=== PATIENT | male | born 1940 | race Caucasian/White ===

== ENCOUNTER 2016-11-13 06:48 | Inpatient (IN) | payer MEDICARE ==
[2016-11-13 06:48] LABS: BASOPHIL 0.3 % (0-2); EOSINOPHIL 1.1 % (0-7); HGB 13.1 g/dl (13.2-18.0); LYMPHOCYTE 14.5 % (15-48); MCH 30.3 pg (25.0-31.0); MCHC 32.8 g/dL (32.0-36.0); MCV 92.6 fL (78.0-100.0); MONOCYTE 7.9 % (0-12); MPV 9.4 fL (6.0-9.5); NEUTROPHIL 76.2 % (41-80); PLT 283 K/uL (150-400); RBC 4.32 M/uL (4.70-6.00); RDW 14.6 % (11.5-14.0); WBC 9.9 K/uL (4.0-10.5)
[2016-11-13 07:06] LABS: ALBUMIN 4.3 g/dL (3.4-4.8); ALKALINE PHOSHATASE 149 U/L (59-141); ALT 252 U/L (2-40); AST 290 U/L (0-37); BILIRUBIN - TOTAL 0.9 mg/dL (0.1-1.0); BUN 14 mg/dL (6-25); CHLORIDE 101 mmol/L (98-107); CREATININE 0.7 mg/dL (0.7-1.2); GLOBULIN (CALCULATION) 2.7 g/dL (2.2-4.2); GLUCOSE 153 mg/dL (83-110); POTASSIUM 3.3 mmol/L (3.5-5.1)
[2016-11-13 07:12] LABS: LIPASE >600 U/L (13-60)
[2016-11-13 07:28] LABS: BILIRUBIN NEGATIVE (NEGATIVE); BLOOD NEGATIVE Ery/uL (NEGATIVE); CLARITY CLEAR (CLEAR); COLOR YELLOW (YELLOW); GLUCOSE (U) NORMAL (NORMAL); KETONE (U) NEGATIVE (NEGATIVE); LEUKOCYTES NEGATIVE Leu/uL (NEGATIVE); NITRITE NEGATIVE (NEGATIVE); PROTEIN NEGATIVE (NEGATIVE); UROBILINOGEN 0.2 mg/dL (0.2-1.0)
[2016-11-14 04:05] LABS: BASOPHIL 0.1 % (0-2); EOSINOPHIL 0 % (0-7); HCT 35.9 % (42.0-52.0); HGB 11.9 g/dl (13.2-18.0); LYMPHOCYTE 4.7 % (15-48); MCH 30.4 pg (25.0-31.0); MCHC 33.1 g/dL (32.0-36.0); MCV 91.8 fL (78.0-100.0); MONOCYTE 7.5 % (0-12); MPV 9.4 fL (6.0-9.5); NEUTROPHIL 87.7 % (41-80); PLT 233 K/uL (150-400); RBC 3.91 M/uL (4.70-6.00); RDW 14.8 % (11.5-14.0); WBC 14.7 K/uL (4.0-10.5)
[2016-11-14 04:21] LABS: ALBUMIN 3.6 g/dL (3.4-4.8); BILIRUBIN - TOTAL 0.6 mg/dL (0.1-1.0); CREATININE 0.6 mg/dL (0.7-1.2); GLOBULIN (CALCULATION) 2.5 g/dL (2.2-4.2); MAGNESIUM 1.94 mg/dL (1.40-2.10); POTASSIUM 3.7 mmol/L (3.5-5.1); TOTAL PROTEIN 6.1 g/dL (6.4-8.3)
[2016-11-15 04:30] LABS: BASOPHIL 0.1 % (0-2); EOSINOPHIL 1.5 % (0-7); HCT 35.5 % (42.0-52.0); HGB 11.4 g/dl (13.2-18.0); MCH 29.8 pg (25.0-31.0); MCHC 32.1 g/dL (32.0-36.0); MCV 92.9 fL (78.0-100.0); MONOCYTE 9.6 % (0-12); MPV 9.9 fL (6.0-9.5); NEUTROPHIL 78.8 % (41-80); PLT 205 K/uL (150-400); RBC 3.82 M/uL (4.70-6.00); RDW 14.9 % (11.5-14.0); WBC 13.8 K/uL (4.0-10.5)
[2016-11-15 04:40] LABS: ALBUMIN 3.5 g/dL (3.4-4.8); BILIRUBIN - TOTAL 0.4 mg/dL (0.1-1.0); CREATININE 0.6 mg/dL (0.7-1.2); GLOBULIN (CALCULATION) 2.6 g/dL (2.2-4.2); POTASSIUM 4.1 mmol/L (3.5-5.1); TOTAL PROTEIN 6.1 g/dL (6.4-8.3)
--- NOTE | 2016-11-16 02:16 | NUR ---
0216: AFTER SLEEPING FOR APPROX 90 MINUTES, PT AWAKE, ATTEMPTING TO GET OUT OF BED TO USE RESTROOM, ASSISTED TO USE URINAL AND WHEN TRIED TO ASSIST BACK TO BED PT WANTED TO AMBULATE IN HALLS. CHIEF WHARFINGER AND THIS RN ASSISTED PT TO AMBULATED IN TCU HALLS WITH CANE. PT INSISTING MULTIPLE TIMES THAT HE NEEDS TO LEAVE AND "GET OUT OF HERE". ATTEMPTS TO REORIENT PT TO HOSPITAL SETTING UNSUCCESSFUL. PT CURSING AT STAFF, RAISING CANE THREATENING TO HIT. AFTER PT AGREEING TO RE-ENTER ROOM PT BEGAN HITTING [place] WITH CANE AND YELLING/CURSING AT STAFF TO LEAVE HIM ALONE SO HE CAN "GET THE HELL OUT OF HERE". PT STUCK THIS RN ACROSS THE HAND/ARM WITH CANE, AND OTHER STAFF LAID PT ONTO BED. DR. LIZARRAGA CALLED TO NOTIFY OF CONFUSED/COMBATIVE BEHAVIOR, NEW ORDER FOR HALDOL 2 MG IV X 1 NOW. GIVEN AT 0230. SECURITY AT BEDSIDE. PT MORE CALM, BUT INTERMITTENTLY TRYING TO GET OUT OF BED AND BITE/KICK/SPIT AT STAFF. PTS SON AND DAUGHTER IN LAW CALLED, AND THEY ARE ON THEIR WAY TO HOSPITAL. 0312: PT TRIED TO JUMP OUT OF BED AGAIN, PULLED CHIEF WHARFINGER INTO HEADLOCK AND PULLED HAIR. GOT PT BACK INTO BED AND ATTEMPTS TO REORIENT/CALM UNSUCCESSFUL. DR. LIZARRAGA NOTIFIED OF PT STILL REMAINS COMBATIVE/CONFUSED. NEW ORDER FOR REPEAT HALDOL 2 MG IV X 1 DOSE NOW. GIVEN AT 0316. PT FELL ASLEEP, SEDATED BY 0335. VITALS OBTAINED, BP: 171/82, HR 115, RR 20, O2 93% ON RA, TEMP 98.2. PT DID NOT AWAKEN WITH VITALS/REPOSITIONING OF SEWAGE DISPOSAL WORKER. WAS CALM/APPEARED TO BE ASLEEP FOR APPROX 20 MIN. LAB STAFF WALKED INTO ROOM AND STATED PT NAME AND PT STARTLED, JUMPED OUT OF BED. MULTIPLE ATTEMPTS TO CALM/REORIENT/GET PT BACK TO BED UNSUCCESSFUL, YANKED METAL CRUCIFIX OFF OF WALL AND ATTEMPTING TO STAB STAFF. PT PHYSICALLY RUNNING DOWN HALLS CHASING STAFF STATES "DO YOU WANT TO ?" MAKING STABBING MOTIIONS WITH CRUCIFIX. SECURITY AND CODE MENDIOLA CALLED. PT RAN TO [facility], ALL PT DOORS WERE CLOSED AND STAFF NOTIFIED, PT GRABBED STAFF MEMBER PURSE AND THREW ALL CONTENTS DOWN BRAVO, STABBED DESK AND TISSUE BOX MULTIPLE TIMES WITH CRUCIFIX. CHASING MULTIPLE STAFF MEMBERS DOWN HALLS. [place] [employer] CALLED, ALL UNIT DOORS LOCK DOWN AND SECURED. POLICE SECURED CRUCIFIX FROM PT AND PT ESCORTED BACK TO ROOM PER POLICE AT 0405. SPOKE WITH DR. LIZARRAGA AGAIN AT 0408. NEW ORDER FOR HALDOL 1 MG IV X 1 DOSE NOW. SON AND DAUGHTER IN LAW ARRIVED AND PT MUCH MORE CALM AND COOPERATIVE, EXTRA DOSE OF HALDOL NOT GIVEN AT THIS TIME. STAFF STILL IN ROOM WITH PT AND FAMILY. PT STAYING IN BED, CALM AND COOPERATIVE. WILL MONITOR CLOSELY. SITUATION EXPLAINED FULLY TO PT'S SON AND DAUGHTER IN [place]. AT 0515 BP 135/64, HR 96, RR 24, 02 96% ON RA, TEP 98.0.
[2016-11-16] MEDS ORDERED: ASPIRIN325 M1 PO (14:54)
[2016-11-16] MEDS ORDERED: ADALAT CC30 MG PO (14:55)
[2016-11-16] MEDS ORDERED: PROBIOTIC1 EAC1 PO (14:55)
[2016-11-16] MEDS ORDERED: HYDROCODON-ACE1 EAC2 PO (14:55)
[2016-11-16] MEDS ORDERED: KLONOPIN1 MG PO (14:55)
== END 2016-11-16 15:30 | disposition home or self-care (01) | DRG 438 ==
LOC: FER 06:48 → FTCU 10:45
PROVIDERS: Emergency Medicine; ADMIT Internal Medicine
DX: K85.90 Acute pancreatitis without necrosis or infection, unspecified (principal); G92 Toxic encephalopathy; K75.81 Nonalcoholic steatohepatitis (NASH); F03.90 Unspecified dementia, unspecified severity, without behavioral disturbance, psychotic disturbance, mood disturbance, and anxiety; Z85.46 Personal history of malignant neoplasm of prostate; K21.9 Gastro-esophageal reflux disease without esophagitis; Z79.82 Long term (current) use of aspirin; M19.90 Unspecified osteoarthritis, unspecified site; Z83.3 Family history of diabetes mellitus; Z82.3 Family history of stroke; Z80.9 Family history of malignant neoplasm, unspecified
CPT/HCPCS: 36415; 73560; 74022; 74181; 76705; 80053; 80074; 81003; 83690; 83735; 84478; 84484; 85025; 93005; 96372; 97110; 97116; 97162; 97166; 97530; 97530-GP; 97535; J1170; J1956; J2175; J2270; J2405; J3360; Q9967